=== PATIENT | female | born 1950 | race Caucasian/White ===

== ENCOUNTER 2017-05-06 14:31 | Day surgery (SDC) | payer OTHER ==
[~2017-05-06] VITALS: Ht 160 cm; Wt 75.0 kg
[2017-05-06] MEDS ORDERED: LEVOTHYROXINE (16:20)
[2017-05-06 16:30] VITALS: BP 144/67; PULSE 81; RESP 17
[2017-05-06] MEDS ORDERED: MIDAZOLAM 1 MG/ML 2 ML INJ ONE (17:12)
--- NOTE | 2017-05-06 17:12 | OPPN ---
Date/Time of Note Date/Time of Note DATE: 05/06/17 TIME: 17:11 Operative Report Preoperative Diagnosis Change in bowel habit History of colon cancer Postoperative Diagnosis Status post surgery for colon cancer Internal hemorrhoids Occasional diverticulosis of the colon No colon neoplasm is identified Operation/Procedure Performed Colonoscopy Surgeon see signature line office clerk assistant None Anesthesia: moderate sedation Estimated blood loss: none Transfusion Required none Specimen None Grafts/Implants none Complications none RENALDO NGUYEN MD May 06, 2017 17:12
[2017-05-06] MEDS ORDERED: FENTAnyl 50 MCG/ML VIAL ONE (17:13)
[2017-05-06 17:38] VITALS: BP 113/62; PULSE 80; RESP 17
--- NOTE | 2017-05-06 22:43 | GILP ---
DATE OF PROCEDURE: NAME OF PROCEDURE: Colonoscopy. SURGEON: Gerard Landon MD PREOPERATIVE DIAGNOSES: 1. Change in bowel habit. 2. History of colon cancer. POSTOPERATIVE DIAGNOSES: 1. Colonoscopy all the way to the anastomotic site. 2. Occasional diverticulosis of the colon. 3. Internal hemorrhoids. 4. No colon neoplasm was identified. INDICATION FOR THE PROCEDURE: Ms. Caty Aparicio is a 67-year-old female patient who noticed a patrick nge in the bowel habit. She has a history of colon cancer. The patient was scheduled for colonosco py for further evaluation. The procedure and possible complications were well explained to the patient, the patient understood and consented to the procedure. DESCRIPTION OF PROCEDURE: Under the influence of fentanyl and Versed, the colonoscope was carefully introduced in the rectum and under direct vision, it was advanced all the way to the anastomotic si te. FINDINGS: The patient had occasional diverticulosis of the colon. She had internal hemorrhoids. N o colon neoplasm was identified. She tolerated the procedure very well and there was no complication from the procedure. At the end of the procedure, she was awake with stable vital signs and she was discharged home to the care of h family. IMPRESSION: Please see postoperative diagnoses. PLAN: Next screening colonoscopy in 10 years. Dictated By: GERRAD MEDELLIN/HANNAH Conf#: [id number] DID#: [id number]
== END 2017-05-06 19:10 | disposition home or self-care (01) ==
LOC: GIL 14:31
PROVIDERS: ATTEND Internal Medicine Gastroenterology
DX: R19.4 Change in bowel habit (principal); K57.90 Diverticulosis of intestine, part unspecified, without perforation or abscess without bleeding
CPT/HCPCS: 45378; J2250; J3010